=== PATIENT | male | born 1970 | race Caucasian/White ===

== ENCOUNTER 2024-09-12 11:49 | Outpatient (CLI) | payer OTHER, SELFPAY ==
--- NOTE | ~2024-09-12 | XR_ITS ---
AP lateral views of the left hip Clinical history: Pain Findings: No acute fracture or dislocation is seen. Osseous alignment is anatomic. Left hip joint is intact. Soft tissues are unremarkable. Impression: No significant abnormality is seen. Reviewed, dictated and finalized at location M. Impression: No significant abnormality is seen.
--- NOTE | ~2024-09-12 | XR_ITS ---
AP and oblique views of the SI joints CLINICAL HISTORY: Back pain FINDINGS: Bilateral hip and SI joints are intact. No degenerative or erosive change evident. No scler osis evident. No fracture or dislocation seen. Soft tissues are unremarkable. IMPRESSION: Unremarkable exam. Reviewed, dictated and finalized at location . IMPRESSION: Unremarkable exam.
--- OUTSIDE RECORDS SUMMARY | 2024-09-12 11:58 | XMS_ITS | Patient Health Record ---
Author Organization [facility] Address [address] [place] [address] Care Team Providers Care Palletizer Name Role Phone Dr. Mike Cuenca Primary Care Provider [phone] Gil Donald Unavailable [phone] Cierra Louise Unavailable [phone] Migration, Provider Unavailable Unavailable Allergies No Known Allergies Reason For Referral No Information Medications Medication SIG (Take, Route, Frequency, Duration) Notes Start Date End Date Status Atorvastatin Calcium 40 MG Tablet 1 tablet Orally daily; Duration: 90 days Active Ramipril 10 MG Capsule 2 capsule Orally Once a day; Duration: 90 days Active Farxiga 10 MG Tablet 1 tablet Orally Once a day; Duration: 90 days Active Cinnamon 500 MG Capsule 1 Oral two times a day; Duration: 0 08/05/2020 Active Aspirin Adult Low Strength 81 MG Tablet Delayed Release 1 Oral every day; Duration: 0 08/05/2020 Active Niacin 500 MG Tablet 1 Oral two times a day; Duration: 0 08/05/2020 Active Vitamin D3 oral; Duration: 0 *Pick strength-form from [employer] for eRX* 02/10/2021 Active Ozempic (2 MG/DOSE) 8 MG/3ML Solution Pen-injector INJECT 2MG SUB-Q ONCE A WEEK.; Duration: 28 days Active Vitamin C oral; Duration: 0 *Pick strength-form from [employer] for eRX* 02/10/2021 Active Albuterol Sulfate HFA 108 (90 Base) MCG/ACT Aerosol Solution 2 puffs as needed Inhalation every 4 hrs; Duration: 30 days 06/13/2024 Active metFORMIN HCl 1000 MG Tablet 1 tablet with a meal Orally twice a day; Duration: 90 days Active Immunizations Vaccine Route Administration Date Status Comme nts Influenza, quadrivalent (IIV4), split virus, 6-35 months dosage IM Intramuscular 01/05/2019 Administered Source VFC Code: : Influenza, seasonal, injectable, preservative free, 3 yrs and above Unknown 12/26/2012 Administered Source VFC Code: : Moderna Covid-19 Vaccine 1st dose IM Intramuscular 09/03/2020 Administered Source VFC Code: : Moderna Covid-19 Vaccine 1st dose IM Intramuscular 10/01/2020 Administered Source VFC Code: : Tdap Unknown 05/23/2014 Administered Source VFC Code: : Social History Social History Additional Details Category Social Info Options Details Migrated Social History Migrated Social History Frequency of drinks:5 drinks per week ,notes : beer , Alcohol history:Currently drinks alcohol , Tobacco history:Unknown if ever smoked Occupation: Works in IT Problems Problem Type SNOMED Code ICD Code Onset Dates Problem Status W/U Status Risk Notes Problem Adult health examination (864536871) Encounter for general adult medical examination without abnormal findings (Z00.00) 06/20/19 16 Problem resolved confirmed Problem Malaise and fatigue (220578143) Other malaise and fatigue (780.79) 10/12/19 17 Problem resolved confirmed Problem Hyperlipidemia (94920486) Other and unspecified hyperlipidemia (272.4) 06/20/19 16 Problem resolved confirmed Problem Body mass index 25-29 - overweight (041749965) Body mass index (BMI) 28.0-28.9, adult (Z68.28) 09/08/19 23 Active confirmed Problem Screening for malignant neoplasm of prostate (847044238) Encounter for screening for malignant neoplasm of prostate (Z12.5) 02/13/20 22 Active confirmed Problem Allergic arthritis of the hand (184716194) Other specified arthritis, unspecified hand (M13.849) 08/06/19 21 Active confirmed Problem Mixed hyperlipidemia (491672439) Mixed hyperlipidemia (E78.2) 08/06/19 21 Active confirmed Problem Vitamin D deficiency (85803792) Vitamin D deficiency, unspecified (E55.9) 07/15/19 24 Active confirmed Problem Essential hypertension (58179423) Essential hypertension (I10) Active confirmed Problem Sciatica (15049733) Lumbago with sciatica, left side (M54.42) Active confirmed Problem Sciatica (00423524) Lumbago with sciatica, right side (M54.41) Active confirmed Problem Shoulder joint pain (341139513) Pain in left shoulder (M25.512) 03/30/19 17 Problem resolved confirmed Problem Blood chemistry abnormal (044077318) Other specified abnormal findings of blood chemistry (R79.89) 09/08/19 23 Active confirmed Problem Essential hypertension (37585099) Essential (primary) hypertension (I10) 08/06/19 21 Active confirmed Problem Hyperglycemia due to type 2 diabetes mellitus (755793487137865) Type 2 diabetes mellitus with hyperglycemia (E11.65) 02/17/20 22 Active confirmed Problem Diabetic retinopathy associated with type 2 diabetes mellitus (901636698) Type 2 diabetes mellitus with unspecified diabetic retinopathy without macular edema (E11.319) 06/20/19 16 Problem resolved confirmed Problem Shoulder joint pain (712525913) Pain in joint, shoulder region (719.41) 03/30/19 17 Problem resolved confirmed Vital Signs Heart Rate 106 /min 08/17/2024 Temperature 97.6 degrees Fahrenheit 08/17/2024 Respiratory Rate 16 /min 08/17/2024 Height-cm 167.64 cm 08/17/2024 Oximetry 97 % 08/17/2024 Blood pressure diastolic 70 mm Hg 08/17/2024 Weight-kg 76.3 kg 08/17/2024 Height 66.00 in 08/17/2024 Blood pressure systolic 112 mm Hg 08/17/2024 Weight 168.2 lbs 08/17/2024 BMI 27.15 kg/m2 08/17/2024 Encounters Encounter Location Date Provider Diagnosis [address] [address] 01/10/2024 Dr. Mike Cuenca Essential (primary) hypertension I10 ; Mixed hyperlipidemia E78.2 and Type 2 diabetes mellitus with hyperglycemia E11.[address] [address] 06/13/2024 Gil Donald Acute allergic rhinitis J30.9 and Acute cough R05.[address] [address] 06/29/2024 Cierra Louise URI with cough and congestion J06.[address] [address] 08/17/2024 Dr. Mike Cuenca Type 2 diabetes mellitus with hyperglycemia, unspecified whether senior care insulin use E11.65 ; Mixed hyperlipidemia E78.2 ; Essential hypertension I10 ; Lumbago with sciatica, right side M54.41 ; Lumbago with sciatica, left side M54.42 and Vitamin D deficiency, unspecified E55.[address] [address] 01/25/2024 Provider Migration [address] [address] 01/26/2024 Provider Migration [address] [address] 05/19/2024 Dr. Mike Cuenca [address] [address] 07/28/2024 Dr. Mike Cuenca Type 2 diabetes mellitus with hyperglycemia E11.65 ; Essential (primary) hypertension I10 ; Mixed hyperlipidemia E78.2 ; Encounter for general adult medical examination without abnormal findings Z00.00 and Encounter for prostate cancer screening Z12.[address] [address] 07/29/2024 Dr. Mike Cuenca Assessments Encounter Date Diagnosis (ICD Code) Assessment Notes Treatment Notes Treatment Clinical Notes Section Notes 06/29/2024 URI with cough and congestion (ICD-10 - J06.9) - Persistent cough and sinus congestion, with productive cough and nasal inflammation. Possible bacterial infection in sinuses. No current wheezing or chest tightness. - Deferred CXR today. - Prescribe Augmentin twice a day for 10 days for ongoing symptoms. - Continue using albuterol inhaler as needed for wheezing, coughing spells, and/or shortness of breath.- Continue Flonase spray twice a day.- Follow up if symptoms persist or worsen. 06/13/2024 Acute cough (ICD-10 - R05.1) Mild wheezes and persistent nasal congestion. Initiate prednsone burst, discussed risk and benefit of med. May trial albuterol inhaler if steroid no improving cough or if cough returns after finishing steroid. Continue OTC meds. Call or return if symptoms not improving with treatment. 06/13/2024 Acute allergic rhinitis (ICD-10 - J30.9) 01/10/2024 Type 2 diabetes mellitus with hyperglycemia (ICD-10 - E11.65) 01/10/2024 Mixed hyperlipidemia (ICD-10 - E78.2) 01/10/2024 Essential (primary) hypertension (ICD-10 - I10) 08/17/2024 Type 2 diabetes mellitus with hyperglycemia, unspecified whether senior care insulin use (ICD-10 - E11.65) MEDICATIONS: No change to current medication regimen. Condition stable.RECOMMENDA TIONS: adherence to diabetic diet, HgbA1C level checked quarterly, urine microalbumin test yearly, daily foot self-inspection, lower blood pressure, yearly dental exams, annual eye exams, needyearly flu shots and daily exercise and importance to take medications regularly and proper foot care. FOLLOW-UP: Schedule a follow-up visit in 3 months. COUNSELING: Advised as to the targets of pre-meal glucoses (80-120 mg/dl) and postmeal glucoses (140-160 mg/dl). Home glucose testing discussed. The A1c target of 7% according to [facility] wer discussed. 07/28/2024 Type 2 diabetes mellitus with hyperglycemia (ICD-10 - E11.65) 07/28/2024 Essential (primary) hypertension (ICD-10 - I10) 08/17/2024 Mixed hyperlipidemia (ICD-10 - E78.2) MANAGEMENT: Condition stable. Continue same treatment plan. RECOMMENDATIONS: Maintain a regular exercise program. Reduce the amount of cholesterol and saturated fat in your diet. (Limiting red meats and dairy)FOLLOWUP: Return to clinic in 6 months for recheck. 08/17/2024 Essential hypertension (ICD-10 - I10) MEDICATIONS: No change to current medication regimen. Condition Stable.RECOMMENDA TIONS: adherence to a healthy diet and reduction of dietary salt intake. FOLLOWUP: Schedule a follow-up visit in 6 months 07/28/2024 Mixed hyperlipidemia (ICD-10 - E78.2) 07/28/2024 Encounter for general adult medical examination without abnormal findings (ICD-10 - Z00.00) 08/17/2024 Lumbago with sciatica, right side (ICD-10 - M54.41) 08/17/2024 Lumbago with sciatica, left side (ICD-10 - M54.42) 07/28/2024 Encounter for prostate cancer screening (ICD-10 - Z12.5) 08/17/2024 Vitamin D deficiency, unspecified (ICD-10 - E55.9) 06/13/2024 Other RECOMMENDATIONS : Increase fluid intake, use saline nasal spray several times daily. Consider antihistamine OTC such as claritin or zyrtec, decongestant products and cough suppressant formulations if no medical contraindications . Treat fever and/or aches and pains with Tylenol and Motrin OTC. I recommended the patient RTC if not improving or if worsening. Plan Of Treatment Pending Test Test Name Order Date X ray : Hip, right 08/17/2024 X ray : SI joint, right 08/17/2024 MRI : Lumbar without contrast 08/17/2024 TSH Reflex Free T4 07/28/2024 Hemoglobin A1c {Glycosylated} 07/28/2024 Vitamin D 25 Hydroxy 07/28/2024 CBC w Auto Diff 07/28/2024 Comprehensive Metabolic Panel 07/28/2024 Lipid Panel {Chol, Trig, HDL, LDL} 07/28 Magnesium 07/28/2024 Vitamin B12 07/28/2024 PSA Annual Screening 07/28/2024 Future Test Test Name Order Date Hemoglobin A1c {Glycosylated} 01/25/2025 Vitamin D 25 Hydroxy 01/25/2025 CBC w Auto Diff 01/25/2025 Comprehensive Metabolic Panel 01/25/2025 Lipid Panel {Chol, Trig, HDL, LDL} 01/25 Next Appt Details Provider Name:Dr. Mike meier, 02/15/2025 03:45:00 PM, [address] [place], [address], [phone] Insurance Providers Payer Name Payer Address Payer Phone Subscriber Number Group Number Insured Name Patient Relationship to Insured Coverage Start Date Coverage End Date [address] [place], [place] [phone] [id number] Danyel Obregon Self - patient is the insured 2 Medical (General) History Medical History History ICD Code Type 2 diabetes mellitus with hyperglyce janis E11.65 Type 2 diabetes mellitus without complic ations E11.9 Vitamin D deficiency, unspecified E55.9 Mixed hyperlipidemia E78.2 Essential (primary) hypertension I10 Surgical History Surgery Date(Month/Year) Colonoscopy ,notes : normal; repeat in 1 0 yrs 08/04/2019
== END 2024-09-12 11:50 | disposition home or self-care (01) ==
PROVIDERS: PCP Pediatrics; Visit Provider Pediatrics
DX: M54.41 Lumbago with sciatica, right side (principal); M54.42 Lumbago with sciatica, left side
CPT/HCPCS: 72202; 73502

== ENCOUNTER 2024-10-16 15:25 | Outpatient (CLI) | payer OTHER, SELFPAY ==
--- NOTE | ~2024-10-16 | MR_ITS ---
EXAMINATION: MR lumbar spine wo con DATE: 10/20/2024 9:23 CDT INDICATION: Low back pain. Right hip pain and bilateral leg numbness for 2 to 3 years. No trauma TECHNIQUE: Magnetic resonance imaging (MRI) of the lumbar spine was performed without intravenous contrast. Sequences included sagittal T2-weighted FSE, sagittal T2-weighted FS FSE, sagittal T1-weighted FSE, and axial T2-weighted FSE. COMPARISON: None FINDINGS: Lumbar vertebral body heights are within normal limits. Mild dextroconvex curvature of the lumbar spine. Disc desiccation throughout the lumbar spine. Severe intervertebral disc space narrowing at the L3-L4 and L4-5 levels. Mild intervertebral disc space narrowing at the T12-L1 and L5-S1 levels. Tip of the conus medullaris ends at the L1 level. No abnormal signal within the spinal cord. Grade 1 retrolisthesis of L3 on L4 and L4 on L5. At the L1-L2 level, there is a small broad-based disc bulge causing mild narrowing of the spinal canal and mild narrowing of the bilateral neuroforamen. At the L2-L3 level, there is a moderate-sized broad-based disc bulge with hypertrophy of the ligamentum flavum and degenerative changes in the facet joints causing moderate narrowing of the spinal canal. No significant narrowing of the bilateral neuroforamen. At the L3-4 level, there is a large broad-based disc bulge with degenerative change in the facet joints and hypertrophy of the ligamentum flavum causing severe narrowing of the spinal canal. Moderate bilateral neural foraminal narrowing. At the L4-5 level, there is a moderate-sized broad-based disc bulge with hypertrophy of the ligamentum flavum and degenerative changes in the facet joints causing moderate narrowing of the spinal canal. Moderate narrowing of the bilateral neural foramen. The posterior broad-based disc bulge extends caudally along the posterior superior aspect of the L5 vertebral body. At the L5-S1 level, no significant narrowing of the spinal canal or bilateral neural foramen. IMPRESSION: 1. Multilevel discogenic and degenerative change in the lumbar spine as detailed above. 2. Severe spinal stenosis at the L3-4 level as detailed above. 3. Grade 1 retrolisthesis of L3 on L4 and L4 on L5 Reviewed, dictated and finalized at location Q. IMPRESSION: 1. Multilevel discogenic and degenerative change in the lumbar spine as detaile d above. 2. Severe spinal stenosis at the L3-4 level as detailed above. 3. Grade 1 retrolisthesis of L3 on L4 and L4 on L5
== END 2024-10-16 15:26 | disposition home or self-care (01) ==
LOC: MICIMG 15:27
PROVIDERS: PCP Pediatrics; Visit Provider Pediatrics
DX: M54.41 Lumbago with sciatica, right side (principal); M54.42 Lumbago with sciatica, left side; M47.896 Other spondylosis, lumbar region; M48.061 Spinal stenosis, lumbar region without neurogenic claudication
CPT/HCPCS: 72148